=== PATIENT | female | born 1955 ===

== ENCOUNTER 2019-12-11 11:15 | Inpatient (IN) | payer OTHER ==
[~2019-12-11] VITALS: Ht 157.5 cm; Wt 88.5 kg
[2019-12-14] MEDS ORDERED: HYZAAR 50-12.51 EACH PO (11:27)
[2019-12-14] MEDS ORDERED: SULINDAC200 MG PO (11:28)
[2019-12-14] MEDS ORDERED: SINGULAIR10 MG PO (11:28)
[2019-12-14] MEDS ORDERED: SYNTHROID88 MCG PO (11:28)
[2019-12-14] MEDS ORDERED: ZOCOR40 MG PO (11:28)
[2019-12-19] MEDS ORDERED: HYOSCYAMINE0.125 M1 SL (07:57)
[2019-12-19] MEDS ORDERED: KETO10TA2 PO (07:58)
[2019-12-19] MEDS ORDERED: ANTI-GAS166 MG PO (07:59)
== END 2019-12-19 10:25 | disposition home or self-care (01) | DRG 331 ==
LOC: O/R 12-12 10:45 → SURG 12-17 18:58
PROVIDERS: ADMIT Surgery; ATTEND Surgery
PROC: 0DBN4ZZ Excision of Sigmoid Colon, Percutaneous Endoscopic Approach (ICD-10-PCS; 2019-12-17)
PROC: 0DJD8ZZ Inspection of Lower Intestinal Tract, Via Natural or Artificial Opening Endoscopic (ICD-10-PCS; 2019-12-17)
PROC: 0DTP4ZZ Resection of Rectum, Percutaneous Endoscopic Approach (ICD-10-PCS; principal; 2019-12-17 09:45)
DX: K57.30 Diverticulosis of large intestine without perforation or abscess without bleeding (principal); K66.0 Peritoneal adhesions (postprocedural) (postinfection); I10 Essential (primary) hypertension; E03.9 Hypothyroidism, unspecified

== ENCOUNTER 2021-02-05 07:25 | Day surgery (SDC) | payer OTHER ==
[~2021-02-05 07:25] MED LIST: ANTI-GAS166 MG PO; HYOSCYAMINE0.125 M1 SL; HYZAAR 50-12.51 EACH PO; KETO10TA2 PO; SINGULAIR10 MG PO; SULINDAC200 MG PO; SYNTHROID88 MCG PO; ZOCOR40 MG PO
== END 2021-02-05 12:15 | disposition home or self-care (01) ==
LOC: AMB-ENDOS 07:25
PROVIDERS: ATTEND Surgery
DX: K57.32 Diverticulitis of large intestine without perforation or abscess without bleeding (principal); Z20.822 Contact with and (suspected) exposure to COVID-19